=== PATIENT | male | born 1950 | race Caucasian/White ===

== ENCOUNTER 2020-04-15 08:28 | Day surgery (SDC) | payer MEDICARE, OTHER, SELFPAY ==
--- NOTE | 2020-04-12 11:18 | P.CONAN_ITS ---
Documented by User: Arleen Ingram 04/12/20 11:19 HPI - Anesthesia Eval Consult details Narrative: 70yo M for Colonscopy: screening [facility] Past Medical History Medical History GERD (gastroesophageal reflux disease) HTN (hypertension) Surgical History Surgical History Hx of bilateral cataract extraction Hx of colonoscopy Hx of detached retina repair Hx of right inguinal hernia repair Social History Social History Smoking Status: Never smoker Second Hand Smoke Exposure: No Use of substances other than those prescribed or required for medical reasons: No Advance Directives: No Advance Directives Information Provided: Yes Advance Directives on File: No Meds Allergies Allergy/AdvReac Type Severity Reaction Status Date / Time shrimp Allergy Unknown Unknown Verified 04/10/20 09:52 Home Medications Medication Instructions Recorded Confirmed Type cholecalciferol (vitamin D3) 50 mcg PO DAILY 04/10/20 04/10/20 History [Vitamin D3] omeprazole 20 mg PO DAILY PRN 04/10/20 04/10/20 History triamterene-hydrochlorothiazid 1 cap PO DAILY 04/10/20 04/10/20 History Exam Exam Date and Time: April 12, 2020 111 Assessment and Plan Assessment Anesthesia Assessment: Chart Reviewed Documented by User: Maico Scott 04/15/20 09:54 [facility] Past Medical History Medical History GERD (gastroesophageal reflux disease) HTN (hypertension) Surgical History Surgical History Hx of bilateral cataract extraction Hx of colonoscopy Hx of detached retina repair Hx of right inguinal hernia repair Social History Social History Smoking Status: Never smoker Second Hand Smoke Exposure: No Use of substances other than those prescribed or required for medical reasons: No Advance Directives: No Advance Directives Information Provided: Yes Advance Directives on File: No Meds Allergies Allergy/AdvReac Type Severity Reaction Status Date / Time shrimp Allergy Unknown Unknown Verified 04/10/20 09:52 Home Medications Medication Instructions Recorded Confirmed Type cholecalciferol (vitamin D3) 50 mcg PO DAILY 04/10/20 04/10/20 History [Vitamin D3] omeprazole 20 mg PO DAILY PRN 04/10/20 04/10/20 History triamterene-hydrochlorothiazid 1 cap PO DAILY 04/10/20 04/10/20 History Exam Airway Mallampati Class: I TM Dist: >3cm Neck ROM: Full Loose/Missing/Broken Teeth: Yes and Upper (B8) Heart: RRR Assessment and Plan Assessment Anesthesia Assessment: Anesthesia Plan Discussed Final Anesthetic Review NPO: Yes ASA Class: II Final Preanesthetic Review: Consent Obtained/Reviewed Anesthetic Plan Anesthetic Plan: MAC:
[2020-04-12 14:51] VITALS: BMI 22.4
[2020-04-15 08:48] VITALS: BP 136/81; PULSE 65; RESP 16; TEMP 36.3; O2SAT 98
[2020-04-15] MEDS: Lactated Ringers 1,000 ML 100 ML IVCONT (09:06)
[2020-04-15 10:50] VITALS: BP 108/70; PULSE 89; RESP 16; TEMP 36.6; O2SAT 97
--- NOTE | 2020-04-15 10:51 | PM.OP ---
Brief Operative Note Date of procedure: 04/15/20 Pre-op diagnosis: Screening Post-op diagnosis: other (Colon polyps) Procedure: Colonoscopy to cecum with Biopsy and snare polypectomy Surgeon: Ashok Mcguire Anesthesia: MAC Estimated blood loss (mL): 3.0 Pathology: other (A. Cecal polyps) Condition: stable Disposition: PACU
[2020-04-15 11:04] VITALS: BP 109/78; PULSE 75; RESP 18; TEMP 36.4; O2SAT 98
[2020-04-15 11:14] VITALS: BP 128/78; PULSE 93; RESP 18; TEMP 36.4; O2SAT 99
--- NOTE | 2020-04-15 11:37 | HO.POSTANES ---
Post Anesthesia Evaluation Post Anesthesia Evaluation Vital Signs: Vital Signs Temp Pulse Resp BP Pulse Ox 04/15/20 11:14 97.6 F 93 18 128/78 99 04/15/20 11:04 97.6 F 75 18 109/78 98 04/15/20 10:50 97.8 F 89 16 108/70 97 04/15/20 08:48 97.4 F 65 16 136/81 98 Anesthesia: Monitored Mental Status: Awake Pain Control: Satisfactory Nausea/Vomiting: None Hydration: Adequate Anesthesia-Related Issues: No Anes. Related Issues
--- NOTE | 2020-04-15 13:15 | OP_ITS ---
SURGEON: Ashok Mcguire MD INDICATIONS: The patient presents for evaluation of colorectal cancer screening. Full consent has been obtained from him for this, including risks of bleeding and perforation. PREOPERATIVE DIAGNOSIS: Colorectal cancer screening. POSTOPERATIVE DIAGNOSIS: PROCEDURE PERFORMED: Colonoscopy to the cecum with snare polypectomy, and biopsy and removal of polyp. ESTIMATED BLOOD LOSS: COMPLICATIONS: ANESTHESIA: ASSISTANTS: SPECIMENS: POSTOPERATIVE DIAGNOSES: Colorectal cancer screening, colon polyps, diverticulosis and internal hemorrhoids. DESCRIPTION OF PROCEDURE: The patient was placed in the left lateral decubitus position. The digital rectal exam revealed no abnormalities. The Olympus video pediatric colonoscope was entered into the rectum and advanced easily to the cecum. Once in the cecum, I did identify cecal pouch with appendiceal orifice and a normal-appearing ileocecal valve. The entire cecum was well visualized. In the cecum, was a flat approximately 12 mm grossly adenomatous polyp, which was snared and recovered by suction. The polypectomy site appeared clean, without any sign of residual polyp nor bleeding. In the same area, was an approximately 2 or 3 mm polyp, which was biopsied and completely removed with cold biopsy forceps. The remainder of the cecum appeared normal. The scope was then slowly withdrawn assessing all mucosal surfaces carefully. Preparation was excellent. I did not visualize any other polyps, colitis, nor angiodysplasia. There was a moderate amount of sigmoid diverticulosis. In the rectum, scope was retroflexed visualizing internal hemorrhoids, but no other pathology. The rectal mucosa appeared normal. The scope was straightened out and withdrawn from the patient. He tolerated the procedure well and was returned to the recovery area in stable condition. IMPRESSION: 1. Colon polyps, status post snare polypectomy, and biopsy and removal. 2. Diverticulosis. 3. Internal hemorrhoids. PLAN: The results of the pathology will be checked. Given the appearance of the larger polyp, I would recommend a repeat colonoscopy in 5 years for further screening and surveillance. He will otherwise see me on a p.r.n. basis. He was advised not to use any aspirin and NSAIDs for 1 week. MD SHERRI Norman/SANTIAGO / [id number]
== END 2020-04-15 11:38 | disposition home or self-care (01) ==
PROVIDERS: Visit Provider Internal Medicine
PROC: 0DJD8ZZ Inspection of Lower Intestinal Tract, Via Natural or Artificial Opening Endoscopic (ICD-10-PCS; CPT 45378; principal; 2020-04-15 09:40)
DX: Z12.11 Encounter for screening for malignant neoplasm of colon (principal); D12.0 Benign neoplasm of cecum; Z83.71 Family history of colonic polyps; K57.30 Diverticulosis of large intestine without perforation or abscess without bleeding; K64.8 Other hemorrhoids; K21.9 Gastro-esophageal reflux disease without esophagitis; I10 Essential (primary) hypertension; Z79.899 Other long term (current) drug therapy; Z80.52 Family history of malignant neoplasm of bladder
CPT/HCPCS: 45385; 45380; 88305

== ENCOUNTER 2025-05-07 06:28 | Day surgery (SDC) | payer MEDICARE, OTHER, SELFPAY ==
--- OUTSIDE RECORDS SUMMARY | 2025-04-10 17:23 | XMS_ITS | Clinical Summary ---
Author Organization [facility] Address [address] [place] [id number] Phone Care Team Providers Care Patient Intake Representative Name Role Phone Daphnie Gavin MD Primary Care Provider [phone] Rachelle Harris MD Unavailable [phone] Allergies Active Allergy Reactions Criticality Noted Date Comments Shrimp Rash Low 03/31/2017 Medications fluticasone propionate (FLONASE) 50 mcg/actuation nasal spray USE 1 SPRAY IN BOTH NOSTRILS DAILY IN THE MORNING FOR 14 DAYS 0 7 Active ketorolac (ACULAR) 0.5 % ophthalmic solution PUT 1 DROP INTO RIGHT EYE TWICE A DAY 1 7 Active triamterene-hyd roCHLOROthiazid e (DYAZIDE) 37.5-25 mg per capsule TAKE 1 CAPSULE BY MOUTH DAILY,X90 DAYS 1 7 Active omeprazole (PRILOSEC) 20 mg TbEC Take 20 mg by mouth daily before breakfast. Active cholecalciferol (VITAMIN D3) 2,000 unit capsule Take by mouth daily. Active cyclopentolate (CYCLOGYL) 1 % ophthalmic solution USE 1 DROP RIGHT EYE 3 TIMES A DAY 5 7 Active bromfenac 0.07 % Drop ophthalmic solution Place 1 drop into the right eye 2 (two) times a day. 5 mL 2 8 Active Additional Information Patient not taking.Reported on 03/10/2019 difluprednate (DUREZOL) 0.05 % Drop Place 1 drop into the right eye 4 (four) times a day. 5 mL 5 8 Active Additional Information Patient not taking.Reported on 03/10/2019 ofloxacin (OCUFLOX) 0.3 % ophthalmic solution Place 1 drop into the right eye 4 (four) times a day. 5 mL 8 Active Additional Information Patient not taking.Reported on 03/10/2019 prednisoLONE sodium phosphate 1 % ophthalmic solution Place 1 drop into the right eye 4 (four) times a day. 5 mL 2 8 Active Additional Information Patient not taking.Reported on 03/10/2019 ketorolac (ACULAR) 0.5 % ophthalmic solution Place 1 drop into the right eye 4 (four) times a day. 5 mL 3 8 Active Additional Information Patient not taking.Reported on 03/10/2019 prednisoLONE acetate (PRED FORTE) 1 % ophthalmic suspensionIndic ations:Right epiretinal membrane PLACE 1 DROP INTO THE RIGHT EYE 4 TIMES DAILY 5 mL 3 9 Active Additional Information Patient not taking.Reported on 03/10/2019 erythromycin (ROMYCIN) ophthalmic ointment Place 0.5 inches into the right eye 2 (two) times a day. 3.5 g 2 9 Active Additional Information Patient not taking.Reported on 03/10/2019 prednisoLONE acetate (PRED FORTE) 1 % ophthalmic suspension Place 1 drop into the right eye 2 (two) times a day. 5 mL 4 1 Active Active Problems No known active problems Social History Tobacco Use Types Packs/Day Years Used Date Smoking Tobacco: Never Smokeless Tobacco: Never Alcohol Use Standard Drinks/Week Comments No 0 (1 standard drink = 0.6 oz pur e alcohol) Education Answer Date Recorded Are you interested in more education? Not on elias e 10/16/2022 Are you concerned about learning? Not on file 10/16/2022 No 10/16/2022 No 10/16/2022 Digital Access Answer Date Recorded No 11/16/2022 No 11/16/2022 Reliable internet access at home? Not on file 11/16/2022 Device with a working camera? Not on file Sex and Gender Information Value Date Recorded Sex Assigned at Not on file Legal Sex Male 10:02 AM EDT Gender Identity Not on file Sexual Orientation Not on file Last Filed Vital Signs Vital Sign Reading Time Taken Comments Blood Pressure 129/74 03/16/2018 11:45 AM EDT Pulse 56 03/16/2018 11:45 AM EDT Temperature 36.3 C (97.3 F) 03/16/2018 10:12 AM EDT Respiratory Rate 18 03/16/2018 11:45 AM EDT Oxygen Saturation 100% 03/16/2018 11:45 AM EDT Inhaled Oxygen Concentration - - Weight - - Height - - Body Mass Index - - Plan of Treatment Health Maintenance Due Date Last Done Comments Adult Td,Tdap Booster 1951 LIPID PANEL 1951 POTASSIUM LEVEL 1951 DEPRESSION SCREENING 1963 HEPATITIS C SCREENING 1969 COLOGUARD 1996 COLONOSCOPY 1996 COLORECTAL CANCER SCREENING 1996 FIT TEST 1996 FOBT 1996 SIGMOIDOSCOPY 1996 VIRTUAL COLONOSCOPY 1996 PNEUMOCOCCAL VACCINES (50+ years) (1 of 1 - PCV) 2001 INFLUENZA VACCINE (#1) 2025 , 02/24/2019 COVID-19 VACCINE (3 - 2024-2 6 season) 2025 08/06/2020, 07/09/2020 RSV VACCINE (1 - 1-dose 75+ series) 2026 ZOSTER VACCINES Completed 04/28/2019, 01/25/2019, 12/26/2015 SMOKING STATUS SCREENING (On ce After 26 Yrs) Completed 02/07/2021 HEPATITIS A VACCINES Aged Out No long er eligible based on patient's age to complete this topic HIB VACCINES Aged Out No longer eligi ble based on patient's age to complete this topic MENINGOCOCCAL VACCINES (ACWY) Aged Out No longer eligible based on patient's age to complete this topic MENINGOCOCCAL VACCINES (B) Aged Out N o longer eligible based on patient's age to complete this topic Medical Devices Implanted Type Area Back Order Clerk Device Identifier Shelf Expiration Date Model / Serial / Lot Iol Pmma Ac [id number] 17.5d-03/31/2017 Implanted:2016 (Quantity not on file) MEDLINE 09/18/2020 Insurance MEDICARE PART A & B [employer] MEDICARE SUPPLEMENT MEDICARE PART A & B [employer] MEDICARE SUPPLEMENT Care Teams Patient Intake Representative Relationship Specialty Start Date End Date Daphnie Gavin MD [address] [facility] [address] [place] [id number] PCP - General Internal Medicine 01/25/17 Rachelle Harris MD [address] [place] [id number] Consulting Provider Ophthalmology 03/17/18 Additional Source Comments The information contained in this document represents components of the legal health record. It is not the complete legal health record.[facility]
--- OUTSIDE RECORDS SUMMARY | 2025-04-10 17:23 | XMS_ITS | Data Portability ---
Author Organization [place] [facility], [facility] Address [address] [place] [address] Assessment No assessment recorded. Plan of Treatment Reminders Order Date Submit Date Provider Last Modified By Organization Details Last Modified Time Details Appointments None recorde d. Lab None recorde d. Referral physica l therapi st referra l - End range stretch ing Rotator cuff and perisca pular strengt hening with scapula r stabili zation program Home exercis e program 2024 025 vin [facility] Physical Medicine & Rehabilitation Scheduling Dept, [address] [facility], [place], [address], 5 07:39:43 Procedures None recorde d. Surgeries None recorde d. Imaging XR, shoulde r, 2 or more view - room 101 right shoulde r 2024 025 vin [facility], [address], [facility] [address], [place], [address], 5 07:39:43 Medication Orders None recorde d. Patient TargetsNo targets recorded. Patient Instructions Encounter Date Encounter Id Patient Instructions Last Modified By Organization Details Last Modified Time 01/19/2025 [id number] rotator cuff: exercises Not available 01/19/2025 13:14:51 Reason for Referral Physical Therapist Referral for Impingement syndrome of right shoulder region End range stretchingRotator cuff and periscapular strengthening with scapular stabilization program Home exercise program Referring Physician: Joesph Juarez, Orthopedic Surgery, Encounter Date: 01/19/2025 Results Created Date Observation Date Name Description Value Unit Range Abnormal Flag Note LastModifiedBy Organization Detail LastModifiedTime 01/20/20 25 01/19/2025 XR, shoul andrae, 2 or more view http:/ [email or web address] ?Encry pted=mehran Wu YD8dLq bEUv6g %2BXZw aYqtaq 0bqfl% 2Fg9IQ a4ajBk vP9nXo QUaueC m3YtLR FvZlgJ JJ8mAn HZtai3 9c2385 AC0Klb niHUaK vKiQtr MwF INTERFACE [facility] Office [address] [facility] [address], [place], [address], 01/19/2025 12:42:48 01/20/20 25 01/19/2025 XR, shoul andrae, 2 or more view http:/ [email or web address] ?Encry pted=mehran Wu YD8dLq bEUv6g %2BXZw aYqtaq 0bqfl% 2Fg9IQ a4ajBk vP9nXo QUaueC m3YtLR FvZlgJ JJ8mAn HZtai3 6x1750 AC0Klb niHUaK vKiQtr MwF INTERFACE [facility] Office [address] [facility] [address], [place], [address], 01/19/2025 12:42:49 Result Notes Documentation Provider Name and Address Organization Details Recorded Time Xr, Shoulder, 2 Or More View : [email or web address] Encrypted=kzOuCctPL6gBhbH Uv6g%1YUTbjQnrqb6zxql%2Fg 3MVi8woZtvW2nAsDVosgLa1Zq VWAkLpeLBY1sIeOMifk68h624 0DH2LnoeuPKmLvAeQyuUuH Not Available [facility] 01/19/2025 12:42: 48 Xr, Shoulder, 2 Or More View : [email or web address] Encrypted=gdGkIxkQN8fAzjM Uv6g%7BZYepLhwve7myai%2Fg 5XTr6dwFdrO7jHfVPatuIy1Le RYGqZrzMAH1fXdOHbqh10n603 3IZ6KcolqUNdKnEkGntKlP Not Available [facility] 01/19/2025 12:42: 50 Problems Name Problem SNOMED Code Status Onset Date Resolution Date Notes Provider Name and Address Organization Details Recorded Time No complaints 524589977 Active Status : 'A'; Not Available [facility] 4 09:21:20 Pain of right shoulder region Active 2024 Joesph Juarez PA-C [address], [place], [address] , [facility] 5 12:34:03 Impingemen t syndrome of right shoulder region 7928306619515 02 Active 2024 Joesph Juarez PA-C [address], [place], [address] , [facility] 5 13:02:43 Calcific tendinitis of shoulder 05733156 Active 2024 Joesph Juarez PA-C [address], [place], [address] , [facility] 5 13:14:26 Problem Notes None recorded. Medical Equipment None Reported. Allergies Allergen ID Allergen Name Allergen Category Reaction Reaction Severity Criticality Documentation Date Start Date Code Code System Note Provider Name and Address Organization Details Recorded Time 170135 shrimp allergeni c extract food Not available Not available Not available 01/19/2025 73886 2 RxNorm Joesph Juarez PA-C [address], [place], [address], [facility] 5 12:31:41 222481 Arnica montana extract medicatio n rash Not available Not available 01/19/2025 47583 8 RxNorm Joesph Juarez PA-C [address], [place], [address], [facility] 12:32:02 Medications Name Sig Start Date Stop Date Status Note LastModified by Organization Details LastModified Time atorvastati n 20 mg tablet TAKE 1 TABLET BY MOUTH EVERY DAY active Not Available Not Available No t Available azithromyci n 250 mg tablet TAKE 2 TABLETS BY MOUTH TODAY, THEN TAKE 1 TABLET DAILY FOR 4 DAYS DIRECTED 01/16 completed Not Available Not Available Not Available sulfamethox azole 800 mg-trimetho prim 160 mg tablet TAKE 1 TABLET BY MOUTH TWICE A DAY FOR 10 DAYS active Not Available Not Available No t Available triamterene 37.5 mg-hydrochl orothiazide 25 mg capsule TAKE 1 CAPSULE BY MOUTH EVERY DAY active Not Available Not Available No t Available triamcinolo ne acetonide 0.1 % topical cream PLEASE SEE ATTACHED FOR DETAILED DIRECTION S active Not Available Not Available No t Available prednisolon e acetate 1 % eye drops,suspe nsion APPLY ONE DROP TO THE RIGHT EYE ONCE DAILY. active Not Available Not Available No t Available cephalexin 500 mg capsule TAKE 1 CAPSULE BY MOUTH 4 TIMES A DAY FOR 10 DAYS active Not Available Not Available No t Available hydrochloro thiazide 25 mg tablet TAKE 1 TABLET BY MOUTH EVERY DAY 01/19 completed Not Available Not Available Not Available metoprolol succinate ER 25 mg tablet,exte nded release 24 hr PLEASE SEE ATTACHED FOR DETAILED DIRECTION S active Not Available Not Available No t Available fluticasone propionate 50 mcg/actuati on nasal spray,suspe nsion USE 2 SPRAYS NARES, BOTH DAILY,SHA KE WELL BEFORE USING active Not Available Not Available No t Available metoprolol tartrate 25 mg tablet TAKE 0.5 TABLET BY MOUTH 2 TIMES A DAY,X10 DAYS NEEDED HEART RATE active Not Available Not Available No t Available Dyazide Dyazide 37.5-25MG Capsule once a day 2001 active Statu s: 'Curr ent'; Not Available Not Available Not Available fluocinolon e acetonide oil 0.01 % ear drops APPLY 3 DROP INTO BOTH EARS TWICE A DAY FOR 2 WEEKS THEN NEEDED FOR ITCHING active Not Available Not Available No t Available Eliquis 5 mg tablet TAKE 1 TABLET BY MOUTH TWICE A DAY active Not Available Not Available No t Available adapalene 0.1 %-benzoyl peroxide 2.5 % topical gel with pump active Not Available Not Available No t Available baclofen 5 mg tablet TAKE 2 TABLET BY MOUTH DAILY AT BEDTIME,X 7 DAYS, NEEDED FOR MUSCLE SPASM active Not Available Not Available No t Available Vitals Date Recorded Body height Body mass index (BMI) Body weight Provider Name and Address Organization Details Last Updated DateTime 01/19/2024 190.5 cm 21.5 kg/m2 34135.89 g ERIC REED [facility] 01/19/2024 08:19:27 Date Recorded Body height Body mass index (BMI) Body weight Provider Name and Address Organization Details Last Updated DateTime 01/19/2025 190.5 cm 21.7 kg/m2 61511.07 g Joesph Juarez PA-C [address], [place], [address] 01/19/2025 12:31:07 Social History Question Answer Notes LastModified by [employer] Details LastModified Time Tobacco Smoking Status Never Smoker Joesph Juarez PA-C [address], [place], [address], [facility] 01/19/2025 12:32:57 What Is Your Relationship Status? [facility] Information not available 01/19/2025 Sex: Unknown Functional Status Question Answer Note LastModified by OrganizInvenQuery Details LastModified Time Do you use any illicit or recreational drugs? No Information not available 01/19/2025 What is your level of alcohol consumption? None Information not available 01/19/2025 Mental Status None recorded. Family History Nothing Reported. Medical History Condition Response Heart Trouble Y Hypertension Y Sleep Apnea Y Cholesterol Y Past Encounters Encounter ID Performer Location Encounter Start Date Encounter Closed Date Diagnosis/Indication Diagnosis SNOMED-CT Code Diagnosis ICD10 Code Diagnosis IMO Codes Diagnosis Note [id number] [facility] [address] [place] [address] 01/19/2024 08:10:35 01/19/2024 09:10:32 Pain of right knee joint 1841234887 35494 M25.797 [id number] Joesph Juarez PA-C [facility] [address] [facility] [place] [address] 01/19/2025 11:55:27 01/29/2025 07:39:43 Pain of right shoulder region 8904395880 M25.511 75981364 Impingemen t syndrome of right shoulder region 7501031110 96087 M75.41 97724933 Calcific t endinitis of shoulder 15022002 M75.30 85137809 Health Concerns Section Related Observation LastModified by Organization Detai ls LastModified Time None Recorded Concern Status LastModified by Organization Details LastModified Time None Recorded Advance Directives Directive None Recorded Payers Insurance Date Sequence Insurance Name Policy Number Policy Briones Covered Member ID Briones Member ID Guarantor Name 01/19/2025 1 MEDICARE B-AK: [employer] Charles Agee [id number] Charles Agee 01/29/2025 2 [employer] [facility] INDEMNITY [facility]AN (INDEMNITY) [id number] Charles Agee [id number] Charles Agee Notes Date Note Type Note Provider Name and Address Organization Details Recorded Time 01/19/2024 text/html I am seeing the patient today under the supervision of Dr. Vasquez who was available but who did not see the patient.HPI: Bossman is a 73-year-old retired male who I saw back in February of last year for knee pain and bursitis. The bursa was aspirated and he has done quite well. Recently over the past month he noted some recurrent right knee pain. He has been working out with a link trainer. The pain was in the anterior aspect of the knee. He has used some Tylenol and symptoms have resolved. Has a history of Garrett-Schlatter disease and bursitisPast family, medical, social history and review of systems has been reviewed, updated and signed by me and is located in the patient s chart.Examination:Th e patient is well appearing and in no apparent distress. Alert and oriented x3. Gait is symmetric. Right knee exam does show abundant deformity over the tibial tubercle consistent with chronic long-standing Ravin-Schlatter disease with heterotopic bone spur. It is not tender to palpation and there is no redness warmth or fluid collection. Knee exam itself is full motion strength and stability noted joint effusion. No tenderness to palpation of the patella. Mild patella crepitus found. No pain reproduced with single or double leg squatting maneuvers.Impression: Right knee tendinitisPlan: Patient likely developed a bit of patella tendinitis secondary to some increased activity and overuse. Symptoms resolved with conservative care. He is currently asymptomatic today and no aggressive management indicated. Follow-up p.r.n. Mihir Thomas PA-C [address] [facility] [address], [place], [address], [facility] 01/19/2024 08:40:43 01/19/2025 text/html I am seeing this patient under the supervision of Dr. Vasquez who was available but did not see the patient. HPI: Patient is a 74-year-old male who comes in today for initial evaluation chief complaint of right shoulder pain. He has had some lingering symptoms years ago was under the care of an outside orthopedic doctor and was managed with some physical therapy lifestyle modification home exercises. Most recently and had increased pain he had and went a cardiac catheterization within the last 3 weeks and from the prolonged position of his arm by his side developed some increased pain. Frustrated by this, he now comes into our office for orthopedic evaluation. PFMSH and ROS has been reviewed, updated, and signed by me and is located in the patient s chart. PHYSICAL EXAMINATION: The patient is well appearing and in no apparent distress. Alert and oriented x 3. Gait is symmetric. Examination of the right shoulder findings include: ROM forward elevation 175 , external rotates 35 , internal rotates to back pocket, 4/5 strength including rotator cuff and periscapular musculature. Good Muscle bulk and strength without atrophy. No evidence of instability of the shoulder. Positive impingement signs. Moderate AC joint tenderness, Mild tenderness within the bicipital groove. Negative Speed's, Negative O'briens, Negative Denise tests. Cervical ROM normal without radicular symptoms. No erythema, no redness, no warmth. Peripheral, vascular, lymphatic examination, skin, neurological, coordination, reflexes, sensation are within normal limits. X-RAY REPORT: X-rays were ordered, obtained and independently reviewed today at [facility]. Four views of the right shoulder demonstrate type II acromion, calcific deposit within the supraspinatus tendon, well-preserved glenohumeral joint, AC joint arthritis. IMPRESSION: Right shoulder impingement, AC joint arthritis, calcific tendinitis discussed the nature of the findings and recommend referral to outpatient physical therapy, we talked about pros and cons of an injection which she opted to hold off on these going forward with at this time. All this reviewed patient content with the plan I gave him home exercise to work on if his symptoms escalate reevaluate patient be injected at that time. If symptoms still responsive would consider MRI scan imaging in future. PLAN: Discussed the nature of the findings and recommend referral to outpatient physical therapy, we talked about pros and cons of an injection which she opted to hold off on these going forward with at this time. All this reviewed patient content with the plan I gave him home exercise to work on if his symptoms escalate reevaluate patient be injected at that time. If symptoms still responsive would consider MRI scan imaging in future. [facility] speech recognition geospatial technician software was used to create portions of this document. An attempt at proofreading has been made to minimize errors. Please call for corrections. Joesph Juarez PA-C [address] [place], [place] [address] [address], [place], [address], [facility] 01/19/2025 13:14:54
--- OUTSIDE RECORDS SUMMARY | 2025-04-10 17:23 | XMS_ITS | Patient Health Record ---
Author Organization [facility] Address [address] [place] [address] Care Team Providers Care Vba Programmer Name Role Phone Shayne Banuelos Primary Care Provider Lena Morrison Unavailable [phone] Allergies Allergen (clinical drug ingredient) Drug/Non Drug Allergy documented on EMR Reaction Allergy Type Onset Date Status amoxicillin Amoxicillin stomach upset Drug Allergy Active Shellfish (FN) Shellfish-derived Products Unknown Drug Allergy Active Reason For Referral No Information Medications Medication SIG (Take, Route, Frequency, Duration) Notes Start Date End Date Status Vitamin D 50 MCG (1999) 1 tablet Oral ly Once a day Active Atorvastatin Calcium 20 MG 1 tablet Oral ly Once a day Active Ketorolac Tromethamine Not-Taking Baby Aspirin Not-Vincenzo ing Omeprazole 20 MG 2 capsules Orally Once a day PRN Not-Taking prednisoLONE Acetate 1 % Ophthalmic; Duration: 75 Days Not-Taking Loteprednol Etabonate 0.5 % Ophthalmic; Duration: 30 Days Active Compression Stockings 20-30m m Hg 1 pair wear daily; Duration: 30 days Active Eliquis 5 MG TAKE 1 TABLET BY MOUTH TWICE A DAY Oral; Duration: 30 Days Active Fluticasone Propionate Not-Taking hydroCHLOROthiazide 25 MG Oral; Duration : 90 Days Not-Taking Metoprolol Tartrate 25 MG TAKE 0.5 TABLE T BY MOUTH 2 TIMES A DAY,X10 DAYS NEEDED HEART RATE Oral; Duration: 20 Days Active Triamterene-HCTZ 37.5-25 MG 1 tablet in the morning Orally Once a day Not-Taking Aspirin Not-Taking Immunizations Vaccine Route Administration Date Status Comme nts Influenza Unknown 04/13/2024 Administered COVID-19 Moderna Vaccine Unknown 08/06/2020 Administered 1st vaccine 06/21 03/11 Social History Tobacco Use: Social History Observation Description Date Details (start date - stop date) Never Smoker NA - NA Tobacco use other than smoking: Question Answer Notes Are you an other tobacco user? No Tobacco Control (Standard) Question Answer Notes Tobacco use: Nonsmoker Additional Findings: Tobacco non-user Current no nsmoker AUDIT-C (Standard) Question Answer Notes Did you have a drink containing alcohol in the p ast year? No Points 0 Interpretation Negative Vital Signs Blood pressure diastolic 65 mm Hg 03/29/2025 Height 6ft 3in in 03/29/2025 Blood pressure systolic 128 mm Hg 03/29/2025 Weight 172 lbs 03/29/2025 BMI 21.5 kg/m2 03/29/2025 Encounters Encounter Location Date Provider Diagnosis [address] [address] 06/29/2024 Lena Perica Tinea unguium B35.1 ; Contusion of left foot, initial encounter S90.32XA ; Pain in right toe(s) M79.674 and Pain in left toe(s) M79.[address] [address] 09/25/2024 Lena Perica Edema, lower extremity R60.0 ; Tinea unguium B35.1 ; Pain in right toe(s) M79.674 and Pain in left toe(s) M79.[address] [address] 01/04/2025 Lena Perica Edema, lower extremity R60.0 ; Tinea unguium B35.1 ; Pain in right toe(s) M79.674 and Pain in left toe(s) M79.[address] [address] 03/29/2025 Lena Perica Tinea unguium B35.1 ; Neuritis of left foot G57.92 ; Pain in right toe(s) M79.674 ; Pain in left toe(s) M79.675 and Pain in left foot M79.[address] [address] 06/01/2024 Lena Perica [facility] [address] [address] 06/12/2024 Lena Perica [facility] [place] [address] [facility] [place] [address] 06/29/2024 Lena Perica [facility] [place] [address] [facility] [place] [address] 09/25/2024 Lena Perica [facility] [place] [address] [facility] [place] [address] 12/12/2024 Lena Perica [facility] [place] [address] [facility] [place] [address] 01/26/2025 Lena Perica [facility] [place] [address] [facility] [place] [address] 03/16/2025 Lena Perica [facility] [address] [address] 03/29/2025 Lena Perica [facility] [address] [address] 04/03/2025 Lena Perica [facility] [address] [address] 04/10/2025 Lena Perica Assessments Encounter Date Diagnosis (ICD Code) Assessment Notes Treatment Notes Treatment Clinical Notes Section Notes 06/29/2024 Contusion of left foot, initial encounter (ICD-10 - S90.32XA) 06/29/2024 Tinea unguium (ICD-10 - B35.1) 09/25/2024 Tinea unguium (ICD-10 - B35.1) 09/25/2024 Edema, lower extremity (ICD-10 - R60.0) 01/04/2025 Tinea unguium (ICD-10 - B35.1) 01/04/2025 Edema, lower extremity (ICD-10 - R60.0) 03/29/2025 Tinea unguium (ICD-10 - B35.1) 03/29/2025 Neuritis of left foot (ICD-10 - G57.92) 01/04/2025 Pain in right toe(s) (ICD-10 - M79.674) 03/29/2025 Pain in right toe(s) (ICD-10 - M79.674) 06/29/2024 Pain in right toe(s) (ICD-10 - M79.674) 09/25/2024 Pain in right toe(s) (ICD-10 - M79.674) 06/29/2024 Pain in left toe(s) (ICD-10 - M79.675) 09/25/2024 Pain in left toe(s) (ICD-10 - M79.675) 01/04/2025 Pain in left toe(s) (ICD-10 - M79.675) 03/29/2025 Pain in left toe(s) (ICD-10 - M79.675) 03/29/2025 Pain in left foot (ICD-10 - M79.672) Plan Of Treatment Pending Test Test Name Order Date X ray : Foot, left 3V 07/21/2018 [id number] NAIL, 6 OR MORE 10/08/2020 [id number] NAIL, 1-5 04/21/2018 [id number] NAIL, 1-5 04/03/2016 [id number] NAIL, 1-5 12/04/2016 [id number] Destruction, -14 12/04/2016 71477-Xrcy Destruction, -14 03/16/2017 83387-Ncys Destruction, 1-14 04/21/2018 53068-Bedc Destruction, 1-14 10/08/2020 Next Appt Details Provider Name:Sukhdev Giordano, 04/16/2025 09:00:00 AM, [address] [place], [address], Provider Name:Lena null, 06/28/2025 10:00:00 AM, [address] [place] [address], [address], Provider Name:Lena null, 09/27/2025 09:00:00 AM, [address] [place], [address], Insurance Providers Payer Name Payer Address Payer Phone Subscriber Number Group Number Insured Name Patient Relationship to Insured Coverage Start Date Coverage End Date Medicare [facility] [address] [place] [address] [id number] Charles Agee Self - patient is the insured PolyP[employer] (Pairy) [address] [place] [address] [id number] Charles Agee Self - patient is the insured Medical (General) History Medical History History ICD Code Arthritis Back,Hip,and Knee pain Cataracts High blood pressure Psoriasis/eczema Reflux Sciatica chronic sinusitis cardiology watch A fib Surgical History Surgery Date(Month/Year) Cataract surgery Retinal detachment Right eye scar tissue 03/08 Hospitalization History Reason Date(Month/Year) cardiac 01/12 er overnight 08/2024 [facility] chest pain 10/2021 ER- fell 04/11/21
--- OUTSIDE RECORDS SUMMARY | 2025-04-10 17:23 | XMS_ITS | Patient Health Record ---
Author Organization [facility] Address [address] [place] [address] Care Team Providers Care Utilities Manager Name Role Phone Shayne Banuelos M.D. Primary Care Provider Ashok Ramos Unavailable [phone] Allergies Allergen (clinical drug ingredient) Drug/Non Drug Allergy documented on EMR Reaction Allergy Type Onset Date Status Shellfish (FN) Shrimp (uncoded) Unknown Allergy Active Reason For Referral No Information Medications Medication SIG (Take, Route, Frequency, Duration) Notes Start Date End Date Status Eliquis 5 MG TAKE 1 TABLET BY ESTEFANY TH TWICE A DAY Oral; Duration: 90 Days Active Atorvastatin Calcium 20 MG Oral; Duration: 90 Days Acti ve Metoprolol Succinate ER 25 MG PLEASE SEE ATTACHED FOR DETAILED DIRECTIONS Oral; Duration: 90 Days Active prednisoLONE Acetate 1 % Ophthalmic; Dur ation: 75 Days Active Vitamin D 50 MCG (1999 UT) 1 capsule Orally Once a day; Duration: 30 day(s) Active Omeprazole 20 MG TAKE 1 CAPSULE BY MO UT TWICE A DAY ONE HOUR BEFORE MEALS Oral; Duration: 30 Not-Taking Immunizations Vaccine Route Administration Date Status Comme nts Influenza Unknown 02/21/2019 Administered Social History Tobacco Use: Social History Observation Description Date Details (start date - stop date) Never Smoker NA - NA Tobacco Use/Smoking Question Answer Notes Patient is a nonsmoker Alcohol Screen Question Answer Notes Did you have a drink containing alcohol in the p ast year? No Points 0 Interpretation Negative Section Notes: Nonsmoker; no alcohol Nonsmoker; no alcohol Problems Problem Type SNOMED Code ICD Code Onset Dates Problem Status W/U Status Risk Notes Problem Screening for malignant neoplasm of colon (759811677) Encounter for screening for malignant neoplasm of colon (Z12.11) Active confirmed Problem Long-term current use of anticoagulant (370117399) USP (current) use of anticoagulants (Z79.01) Active confirmed Problem Preprocedural examination (421116094511852) Preprocedural examination (Z01.818) Active confirmed Problem Long-term current use of drug therapy (972145935) Long-term use of high-risk medication (Z79.899) Active confirmed Problem History of adenomatous polyp of colon (810663657) History of adenomatous polyp of colon (Z86.0101) Active confirmed Vital Signs Blood pressure diastolic 77 mm Hg 01/30/2025 Height 75 in 01/30/2025 Blood pressure systolic 111 mm Hg 01/30/2025 Weight 173 lbs 01/30/2025 BMI 21.62 kg/m2 01/30/2025 Procedures Procedure Date Ordered Date Performed Result Body Sit e COLONOSCOPY 01/30/2025 N/A Encounters Encounter Location Date Provider Diagnosis [facility] [address] [facility] [address] [place] [address] 01/30/2025 Ashok Mcguire Encounter for screen ing for malignant neoplasm of colon Z12.11 ; USP (current) use of anticoagulants Z79.01 ; History of adenomatous polyp of colon Z86.0101 and Preprocedural examination Z01.818 Assessments Encounter Date Diagnosis (ICD Code) Assessment Notes Treatment Notes Treatment Clinical Notes Section Notes 01/30/2025 Encounter for screening for malignant neoplasm of colon (ICD-10 - Z12.11) Overall, Charles appears quite well. Given his history of tubular adenomas removed almost 5 years ago, I did recommend a follow-up colonoscopy for further screening purposes. We did review the rationale for this in regard to colon cancer prevention. Full consent has been obtained for this, including risks of bleeding and perforation. The procedure will be done with monitored anesthesia care. He was given the below instructions regarding adjustment of his medication for the procedure. Charles was comfortable with this plan. Thank you again for allowing me to participate in Evelia's care. I shall continue to keep you advised of his progress.. 01/30/2025 USP (current) use of anticoagulants (ICD-10 - Z79.01) Overall, Charles appears quite well. Given his history of tubular adenomas removed almost 5 years ago, I did recommend a follow-up colonoscopy for further screening purposes. We did review the rationale for this in regard to colon cancer prevention. Full consent has been obtained for this, including risks of bleeding and perforation. The procedure will be done with monitored anesthesia care. He was given the below instructions regarding adjustment of his medication for the procedure. Charles was comfortable with this plan. Thank you again for allowing me to participate in [facility]. I shall continue to keep you advised of his progress.. 01/30/2025 History of adenomatous polyp of colon (ICD-10 - Z86.0101) Overall, Charles appears quite well. Given his history of tubular adenomas removed almost 5 years ago, I did recommend a follow-up colonoscopy for further screening purposes. We did review the rationale for this in regard to colon cancer prevention. Full consent has been obtained for this, including risks of bleeding and perforation. The procedure will be done with monitored anesthesia care. He was given the below instructions regarding adjustment of his medication for the procedure. Charles was comfortable with this plan. Thank you again for allowing me to participate in [facility]. I shall continue to keep you advised of his progress.. 01/30/2025 Preprocedural examination (ICD-10 - Z01.818) Overall, Charles appears quite well. Given his history of tubular adenomas removed almost 5 years ago, I did recommend a follow-up colonoscopy for further screening purposes. We did review the rationale for this in regard to colon cancer prevention. Full consent has been obtained for this, including risks of bleeding and perforation. The procedure will be done with monitored anesthesia care. He was given the below instructions regarding adjustment of his medication for the procedure. Charles was comfortable with this plan. Thank you again for allowing me to participate in [facility]. I shall continue to keep you advised of his progress.. Plan Of Treatment Pending Test Test Name Order Date COLONOSCOPY 01/30/2025 Future Test Test Name Order Date COLONOSCOPY 01/30/2020 Next Appt Details Provider Name:Ashok Mcguire , 05/07/2025 09:20:00 AM, [address] [place] [address] , [place], [place], [phone], Insurance Providers Payer Name Payer Address Payer Phone Subscriber Number Group Number Insured Name Patient Relationship to Insured Coverage Start Date Coverage End Date MEDICARE OF [place] [address] [place] [address] [id number] CHARLES CELIS Self - patient is the insured [facility] [address] [place] [address] [id number] CHARLES CELIS Self - patient is the insured Medical (General) History Medical History History ICD Code Hypertension GERD - uses omepraozle prn Denies VA,DM,CVA,Lung disease,renal dise ase Neg. colonoscopy in 12/[facility] [address]. Christine; also reports a neg colonoscopy 10 years before that Afib 08/2024 Dr. Swan [facility]---cardiac cath neg. 12/2024 with EF 60% Colonoscopy 03/2020 with 2 tubular adeno mas removed from cecum Surgical History Surgery Date(Month/Year) Inguinal hernia repair-right Left and right cataract surgery Left and right retina detachment
--- OUTSIDE RECORDS SUMMARY | 2025-04-10 17:23 | XMS_ITS | Clinical Summary ---
Author Organization [facility] Address [address] [place] [address] Care Team Providers Care Joint Filler Name Role Phone Jin Berkowitz MD Primary Care Provider Allergies No known active allergies Medications Medication Sig Dispensed Refills Start Date End Date Status fluticasone (FLONASE) 50 MCG/ACT nasal spray USE 1 SPRAY IN BOTH NOSTRILS DAILY IN THE MORNING FOR 14 DAYS 0 12/18/2016 Active ketorolac (ACULAR) 0.5 % ophthalmic solution PUT 1 DROP INTO RIGHT EYE TWICE A DAY 1 01/21/2017 Active Cholecalciferol (VITAMIN D3) 2000 UNITS capsule Take by mouth. 0 Active Omeprazole (RA OMEPRAZOLE) 20 MG TBEC Take 20 mg by mouth. 0 Active triamterene-hydrochlo rothiazide (DYAZIDE) 37.5-25 MG per capsule TAKE 1 CAPSULE BY MOUTH DAILY,X90 DAYS 0 02/05/2017 Active Active Problems Problem Noted Date Diagnosed Date Left shoulder pain 02/04/2017 Family History Medical History Relation Name Comments Cancer Mother Hypertension Mother Relation Name Status Comments Mother Social History Tobacco Use Types Packs/Day Years Used Date Smoking Tobacco: Never Assessed Sex and Gender Information Value Date Recorded Sex Assigned at Not on file Gender Identity Not on file Sexual Orientation Not on file Last Filed Vital Signs Vital Sign Reading Time Taken Comments Blood Pressure - - Pulse - - Temperature - - Respiratory Rate - - Oxygen Saturation - - Inhaled Oxygen Concentration - - Weight 79.4 kg (175 lb) 02/04/2017 1:49 PM EDT Height 195.6 cm (6' 5 ) 02/04/2017 1:49 PM EDT Body Mass Index 20.75 02/04/2017 1:49 PM EDT Plan of Treatment Health Maintenance Due Date Last Done Comments Hepatitis C Screening 1950 COVID-19 Vaccine (#1) 1951 Depression Screening 1963 Preventative Health Evaluation 1969 DTap / Tdap / Td (1 - Tdap) 1970 Colon Cancer Screening (Colonoscopy) 1996 Shingrix-Zoster Vaccine (1 of 2) 2001 Fall Risk Assessment 2016 Pneumococcal Vaccine (1 of 1 - PCV) 2016 Influenza Vaccine (#1) 2025 RSV Adult > 60+ Yrs or Pregn ant (1 - 1-dose 75+ series) 2026 Hepatitis B Vaccines Aged Out No long er eligible based on patient's age to complete this topic RSV Ped < 20 months Aged Out No longe r eligible based on patient's age to complete this topic Care Teams Joint Filler Relationship Specialty Start Date End Date Jin Berkowitz MD [address] [place] [address] PCP - General Guest Relations Agent 01/28/17
--- OUTSIDE RECORDS SUMMARY | 2025-04-10 17:23 | XMS_ITS | Data Portability ---
Author Organization [place] - [facility], All[facility] Address [address] [address] Care Team Providers Care Wind Turbine Service Technician Name Role Phone TATE YUAN Primary Care Provider Assessment Encounter Date Assessment Date Assessment LastModified by Organization Details LastModified Time 04/19/2024 04/19/2024 74 year old male presents for his yearly hearing test. No cerumen bilaterally. TMs are intact and middle ear spaces appear well aerated. 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 His left sided hearing is stable. He has had some decline in the right side at the highest frequencies. He is not currently motivated to obtain amplification. He requests a 6 month follow up for ear cleaning. Recommend repeat audiometric testing in 1-2 years. Not available 04/19/2024 11:17:45 04/19/2024 04/19/2024 Recommendations : Follow up with referring provider. Amplification, pending medical clearance and patient interest. [email or web address] Not available 04/19/2024 10:30:20 10/11/2024 10/11/2024 74 year old male presents for ear cleaning. Bilateral cerumen impactions were debrided. Patient to follow up in 6 months. We will obtain hearing test after ear cleaning. 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 Not available 10/11/2024 10:25:08 Plan of Treatment Reminders Order Date Submit Date Provider Last Modified By Organization Details Last Modified Time Details Appointments Establish ed 15 2025 03:00P SYDNEY CORONADO Not available Not available Not available Hearing Test After 2025 03:30P M Hearing Test Not available Not available Not available Lab None recorded. Referral None recorded. Procedures None recorded. Surgeries None recorded. Imaging None recorded. Medication Orders None recorded. Patient TargetsNo targets recorded. Patient InstructionsNo instructions recorded. Reason for Referral None Reported. Results Created Date Observation Date Name Description Value Unit Range Abnormal Flag Note LastModifiedBy Organization Detail LastModifiedTime 04/19/20 24 audio gram No observ ation record ed. BARCODE Not Available 2023 13:51:44 Result Notes None recorded. Problems Name Problem SNOMED Code Status Onset Date Resolution Date Notes Provider Name and Address Organization Details Recorded Time Gastroeso phageal reflux disease 440736127 Active 2014 GERD; Note: Date Diagnosed : 07/07/2014 8:38 AM (530.81) Not Available [facility] 4 02:56:07 Dysphagia 26976614 Active 2014 Dysphagia , unspecifi ed; Note: Date Diagnosed : 07/07/2014 8:38 AM (787.20) Not Available [facility] 4 02:56:07 Epistaxis Active 2014 Epistaxis ; [facility] Treatment : establish ed problem (to examiner) : stable or improved Note: Date Diagnosed : 07/13/2014 1:30 PM (784.7) Not Available [facility] 4 02:56:06 Deviated nasal septum 031194741 Active 2014 Nasal septal deviation ; Note: Date Diagnosed : 10/01/2014 10:39 AM (470) Not Available [facility] 4 02:56:07 Acute sinusitis 61421589 Active 2014 Acute sinusitis ; Note: Date Diagnosed : 10/01/2014 10:39 AM (461.9) Not Available [facility] 4 02:56:09 Gastroeso phageal reflux disease without esophagit is 752520305 Active 2015 Gastro-es ophageal reflux disease without esophagit is; Note: Date Diagnosed : 01/29/2016 2:48 PM (K21.9) Not Available [facility] 4 02:56:07 Impacted cerumen of bilateral ears 14611411049 06628 Active 2016 Impacted cerumen, bilateral ; Note: Date Diagnosed : 01/04/2017 1:57 PM (H61.23) Not Available [facility] 4 02:56:10 Seasonal allergic rhinitis 163156788 Active 2022 Other seasonal allergic rhinitis; Note: Date Diagnosed : 02/10/2023 9:27 AM (J30.2) Not Available [facility] 4 02:56:07 Cough 05576630 Active 2022 Cough, unspecifi ed; Note: Changed from R05 to R05.9 ( 3 11:17 AM) , Date Diagnosed : 02/10/2023 9:27 AM (R05) Not Available [facility] 4 02:56:08 Sensorine ural hearing loss of bilateral ears 243339564 Active 2022 Sensorine ural hearing loss, bilateral ; Note: Date Diagnosed : 3 9:23 AM (H90.3) Not Available [facility] 4 02:56:08 Itching of skin 790831061 Active 2023 Pruritus, unspecifi ed; Note: Date Diagnosed : 08/04/2023 9:36 AM (L29.9) Not Available [facility] 4 02:56:10 Problem Notes None recorded. Procedures Surgical History Date Name Laterality Status Provider Name and Address Organization Details Recorded Time 5 Cerumen removal without microscope bilat completed Geetha Martin [place] - [facility] 10/11/2024 10:24:08 4 Comp Audio with Tymps - 14285 & 22853 completed MAJOR COX, [address], [address], [facility] - [facility] 04/19/2024 10:30:02 Cataract Surgery completed Elaina Singh [place] - [facility] 04/19/2024 10:45:39 Imaging Results None recorded. Procedure Notes None recorded. Medical Equipment None Reported. Allergies Allergen ID Allergen Name Allergen Category Reaction Reaction Severity Criticality Documentation Date Start Date Code Code System Note Provider Name and Address Organization Details Recorded Time 364647 amoxicill in medicatio n other Not available Not available 11/02/2023 723 RxNorm React ion: unkno wn, unspe cifie d;; Not Available [facility] 01:13:16 Medications Name Sig Start Date Stop Date Status Note LastModified by Organization Details LastModified Time atorvasta tin 20 mg tablet TAKE 1 TABLET BY MOUTH EVERY DAY active Not Available Not Available No t Available Ceftin 500 mg tablet 1 tablet by mouth 2014 active Medicati on ID: [id number] Du ration Value: 14 Prescri bed By Name: DANITA Lux nd Name: Ceftin S end Method: E-Prescr ibed Sub s Allowed: subs OK Medic ationGen ericName : Ceftin Not Available Not Available Not Available aspirin 81 mg tablet,de layed release active Medicati on ID: [id number] B rand Name: aspirin Send Method: E-Prescr ibed Sub s Allowed: subs OK Speci al Instruct ion: TAKE 1 TABLET BY MOUTH EVERY DAY Medi cationGe nericNam e: aspirin Not Available Not Available Not Available triamtere ne 37.5 mg-hydroc hlorothia zide 25 mg capsule TAKE 1 CAPSULE BY MOUTH EVERY DAY 10/11 completed Not Available Not Available Not Available triamcino lone acetonide 0.1 % topical cream PLEASE SEE ATTACHED FOR DETAILED DIRECTIO NS active Not Available Not Available No t Available prednisol one acetate 1 % eye drops,gavino pension APPLY ONE DROP TO THE RIGHT EYE ONCE DAILY. active Not Available Not Available No t Available nitroglyc huma 0.4 mg sublingua l tablet active Medicati on ID: [id number] B rand Name: nitrogly cerin Se nd Method: E-Prescr ibed Sub s Allowed: subs OK Medic ationGen ericName : nitrogly cerin Not Available Not Available Not Available omeprazol e 20 mg capsule,d elayed release 1 capsule by mouth 2017 active Medicati on ID: [id number] D uration Value: 30 Prescri bed By Name: Graham Mauricio MD Brand Name: omeprazo le Send Method: E-Prescr ibed Sub s Allowed: subs OK Medic ationGen ericName : omeprazo le Not Available Not Available Not Available hydrochlo rothiazid e 25 mg tablet TAKE 1 TABLET BY MOUTH EVERY DAY active Not Available Not Available No t Available metoprolo l succinate ER 25 mg tablet,ex tended release 24 hr PLEASE SEE ATTACHED FOR DETAILED DIRECTIO NS active Not Available Not Available No t Available fluticaso ne propionat e 50 mcg/actua tion nasal spray,gavino pension USE 2 SPRAYS NARES, BOTH DAILY,SH NATANAEL WELL BEFORE USING active Not Available Not Available No t Available Bactrim DS 800 mg-160 mg tablet 1 tablet by mouth 10/22 completed Medicati on ID: [id number] Pr escribed By Name: Errol Valdivia nd Name: Bactrim DS Send Method: E-Prescr ibed Sub s Allowed: subs OK Medic ationGen ericName : Bactrim DS Not Available Not Available Not Available metoprolo l tartrate 25 mg tablet TAKE 0.5 TABLET BY MOUTH 2 TIMES A DAY,X10 DAYS NEEDED HEART RATE active Not Available Not Available No t Available Vitamin D active Medicati on ID: [id number] B rand Name: Vitamin D Send Method: E-Prescr ibed Sub s Allowed: subs OK Medic ationGen ericName : Vitamin D Not Available Not Available Not Available fluocinol one acetonide oil 0.01 % ear drops APPLY 3 DROP INTO BOTH EARS TWICE A DAY FOR 2 WEEKS THEN NEEDED FOR ITCHING 04/19 completed Not Available Not Available Not Available omeprazol e 20 mg tablet,de layed release 01/28 completed Medicati on ID: [id number] Br and Name: omeprazo le Send Method: E-Prescr ibed Sub s Allowed: subs OK Speci al Instruct ion: 1 pill po bid before meals Me dication GenericN kamran: omeprazo le Not Available Not Available Not Available Eliquis 5 mg tablet TAKE 1 TABLET BY MOUTH TWICE A DAY active Not Available Not Available No t Available baclofen 5 mg tablet TAKE 2 TABLET BY MOUTH DAILY AT BEDTIME, X7 DAYS, NEEDED FOR MUSCLE SPASM 04/19 completed Not Available Not Available Not Available Vitals Date Recorded Body height Body mass index (BMI) Body weight Provider Name and Address Organization Details Last Updated DateTime 10/11/2024 190.5 cm 22 kg/m2 96154.26 g [facility] 10/11/2024 10:11:53 Social History None recorded. Functional Status None recorded. Mental Status None recorded. Family History Nothing Reported. Medical History Condition Response Hypertension Y GERD/Reflux Y High Cholesterol Y Past Encounters Encounter ID Performer Location Encounter Start Date Encounter Closed Date Diagnosis/Indication Diagnosis SNOMED-CT Code Diagnosis ICD10 Code Diagnosis IMO Codes Diagnosis Note [id number] GEETHA MARTIN PA-C [facility] [address] [address] 04/19/2024 09:55:29 04/19/2024 10:55:45 Sensorineural hearing loss of bilateral ears 575225396 H90.3 [id number] KIM GO [facility] [address] [address] 04/19/2024 10:29:17 04/19/2024 12:29:47 Sensorineural hearing loss of bilateral ears 354089424 H90.3 Audiologic al evaluation results:Ri ght ear:Normal sloping at 3kHz to severe sensorineu ral hearing loss with excellent word recognitio n.Left ear:Normal sloping at 2kHz to profound sensorineu ral hearing loss with excellent word recognitio n.Tympanom etry:Right Ear:Type ALeft Ear:Type A [id number] GEETHA MARTIN PA-C [facility] [address] [address] 10/11/2024 10:04:27 10/11/2024 10:23:53 Impacted cerumen of bilateral ears 4794117307 819252 H61.23 Health Concerns Section Related Observation LastModified by Organization Detai ls LastModified Time None Recorded Concern Status LastModified by Organization Details LastModified Time None Recorded Advance Directives Directive None Recorded Payers Insurance Date Sequence Insurance Name Policy Number Policy Briones Covered Member ID Briones Member ID Guarantor Name 02/01/2025 1 MEDICARE B-UT: [employer] Charles Agee [id number] Charles Agee 02/01/2025 2 [facility] INDEMNITY PLAN (INDEMNITY) [id number] Charles Agee [id number] Charles Agee Notes Date Note Type Note Provider Name and Address Organization Details Recorded Time 04/19/2024 text/html Audiological Evaluation HPIReported by PatientHearing LossFor hearing loss perceived, patient reportshearing loss in both ears (left ear worse)but reportsgradual onset.Use of amplification or other hearing devicesFor use of amplification or other hearing devices, patient reportsnone (does not use amplification). Annual hearing test for gradual hearing loss and to monitor asymmetry. KIM GO [address] [facility],[address], [address], [facility] 04/19/2024 10:31:10 04/19/2024 text/html ROS as noted in the [facility] 74 year old male presents to the office for routine audiometric testing and cerumen removal. He has not noticed any decline in his hearing. He does not feel that he is missing out on any conversational speech. He denies tinnitus. He does have some noise exposure with firearms and heavy machinery but uses earplugs or over the ear headphones. RUBEN NYE MD 100 [facility],[address], [address], [facility] 04/19/2024 12:43:52 10/11/2024 text/html ROS as noted in the [facility] 74 year old male presents for ear cleaning. No acute concerns. LEILANI HARRIS MD 100 [facility],[address], [address], [facility] 10/11/2024 12:13:47
--- NOTE | 2025-05-03 14:45 | HO.ANESPROP2 ---
HPI - Anesthesia Eval Consult details Narrative: 75yo M for Colonoscopy Follows [facility] Cardiology for: Paroxysmal atrial fibrillation (Eliquis) Cardiomyopathy with mildly reduced EF?with recovery noted on recent [facility] CAD with?mild disease to?LAD only Stable at 02/2025 office visit for 4 month f/u. Pt reports regular strenuous exercise. Cath done 12/2024 (see below) [facility] Past Medical History Medical History Cardiomyopathy BPH (benign prostatic hyperplasia) Atrial fibrillation GERD (gastroesophageal reflux disease) HTN (hypertension) Surgical History Surgical History Hx of cardiac catheterization Hx of right inguinal hernia repair Hx of colonoscopy Hx of detached retina repair Hx of bilateral cataract extraction Social History Social History Patient Tobacco Use Status: Never used Tobacco Second Hand Smoke Exposure: No Use of substances other than those prescribed or required for medical reasons: No Are you DNR?: No Advance Directives: No Advance Directives Information Provided: Yes Meds Allergies Allergy/AdvReac Type Severity Reaction Status Date / Time shrimp Allergy Unknown Unknown Verified 05/07/25 06:59 Arnica (Arnica [place]) Allergy Rash Verified 05/07/25 06:53 Home Medications ?Medication ?Instructions ?Recorded ?Confirmed ?Last Taken ?Type omeprazole 20 mg capsule,delayed 20 mg PO DAILY PRN Gastric Reflux 04/10/20 05/07/25 Unknown History release apixaban 5 mg tablet (Eliquis) 5 mg PO BID 05/03/25 05/07/25 05/04/25 History atorvastatin 20 mg tablet 20 mg PO DAILY 05/03/25 05/07/25 Unknown History ergocalciferol (vitamin D2) 50 mcg 50 mcg PO DAILY 05/03/25 05/07/25 Unknown History (2,000 unit) capsule fluticasone propionate 50 2 spray intranasal DAILY 05/03/25 05/07/25 Unknown History mcg/actuation nasal spray,suspension metoprolol tartrate 25 mg tablet 12.5 mg PO BID 05/03/25 05/07/25 05/07/25 05:15 History loteprednol etabonate 0.5 % eye 1 drp ophthalmic-Right DAILY 05/07/25 05/07/25 Unknown History drops,suspension Exam Pertinent Lab Results Pertinent Lab Results: Narrative Narrative: CTCT Heart/Coronary/3D/Morph ? 14:47:14 IMPRESSION: 1. No evidence of hemodynamically significant coronary artery disease. 2. Scattered predominantly calcified plaque in the LAD produces minimal stenosis in the proximal LAD with less than 25%), mild indices in the mid and distal LAD that appear to be less than 40%. WSN: [id number] Ordering Physician: Nam Engle ? Signed By: Nicolas Chandler MD [facility] Cardiac W+W/O Contrast ? 11:47:48 IMPRESSION: 1. Very technically difficult study. Irregular gating due to arrhythmia/ectopy and respiratory motion. Unable to accurately measure ventricular volumes. 2. Left ventricular size and wall thickness appear grossly normal. Left ventricular systolic function appears reduced. Unable to measure quantitative LVEF for estimate visually due to technical difficulty. 3. The right ventricle is grossly normal in size. Right ventricular systolic function appears reduced. 4. Unable to accurately measure atrial size. 5. Inadequate valve assessment. 6. No T2 evidence of myocardial edema. 7. No evidence of myocardial infarction, myocarditis, infiltrative workup or hypertrophic cardiomyopathy and family difficult delayed contrast imaging. WSN: [id number] Ordering Physician: Nam Engle ? Signed By: Riky Rosales MD ECGECG 12-Lead ? 07:57:33 Please click on pdf link to open report ? Signed By: Leonard Cordova MD ? ECG 12-Lead ? 07:57:33 Ventricular Rate: 61 BPM Atrial Rate: 61 BPM P-R Interval: 164 ms QRS Duration: 102 ms Q-T Interval: 410 ms QTC Calculation(Bazett): 412 ms P [place]: 79 degrees R [place]: 66 degrees T [place]: 68 degrees Normal sinus rhythm with sinus arrhythmia Normal ECG When compared with ECG of 09-Oct-2024 09:21, No significant change was found Confirmed ? Signed By: Leonard Cordova MD Stress Test NM Myocard Perf SPECT Multi ? 09:25:00 Summary 1. Myocardial perfusion imaging is abnormal after exercise stress test at average estimated functional capacity. There is a small, moderate intensity fixed perfusion defect in part of anteroseptal and anterior wall, from apex to base, which slightly improves with stress in the distal anteroseptal wall, with decreased thickening and motion, suggestive of infarct. No evidence of stress induced ischemia. 2. LV function is normal with an E.F. of 79 % at rest and 68 % with stress . 3. EKG portion of the stress test is reported separately. 4. Intense activity in the right arm, elbow level, especially on the stress images, likely due to tracer extravasation. Signatures _ _ ? Signed By: Brandy Ohara MD EchoEchocardiogram - Complete ? 08:19:07 Summary Due to suboptimal visual quality, IV contrast was used to enhance this study. The left ventricular ejection fraction is 30-35 %. There is severe global hypokinesis of the left ventricle. Normal right ventricular size and function. No significant valvular disease. Comparison Comparison is made to the study of November 09, 2024. There is no significant change. Signature ? Signed By: Irish HERNANDEZ, Marci Lopez Cardiac Cath ProcedureCardiac Cath Procedure ? 10:47:26 Conclusions Diagnostic Summary Normal left ventricular filling pressures. LVEDP 10 mmHg. Normal systemic pressures. No significant gradient across aortic valve by catheter pullback from LV to aorta. Left ventriculography was performed using TORREZ and KENYAN cranial projections. Overall normal left ventricle systolic function with LVEF 55 to 60%. No segmental wall motion abnormalities noted. Coronary angiogram showed right dominant system. Angiographically normal RCA, left main and LCx. Mild disease noted in proximal to mid LAD. Beyond the diagonal branch mid LAD has 20% stenosis. No significant or obstructive coronary artery disease noted. Significantly improved LV function compared to previous echocardiogram. Above findings are consistent with possibly false positive nuclear stress test and nonischemic cardiomyopathy likely due to tachybradycardia syndrome. His LV function has recovered completely. Diagnostic Recommendations Continue risk factor modifications for primary prevention. Continue statin and aspirin daily. Follow-up with primary care provider and primary software requirements engineer as scheduled. Assessment and Plan Assessment Anesthesia Assessment: Chart Reviewed
[2025-05-03 15:03] VITALS: BMI 21.6
[2025-05-07] VITALS (7 sets, daily range): BP systolic 92–141; BP diastolic 55–74; PULSE 54–70; RESP 15–18; TEMP 36.2–36.4; O2SAT 95–99; BMI 20.9
[2025-05-07] MEDS: Lactated Ringers 1,000 ML 50 ML IVCONT (07:06)
--- NOTE | 2025-05-07 07:06 | HO.ANESPROP2 ---
[facility] Past Medical History Medical History Cardiomyopathy BPH (benign prostatic hyperplasia) Atrial fibrillation GERD (gastroesophageal reflux disease) HTN (hypertension) Cognitive capacity: normal Functional capacity: independent ambulation Family History Family history of problems with anesthesia: No Surgical History Surgical History Hx of cardiac catheterization Hx of right inguinal hernia repair Hx of colonoscopy Hx of detached retina repair Hx of bilateral cataract extraction History of Problems with Anesthesia: No Social History Social History Patient Tobacco Use Status: Never used Tobacco Second Hand Smoke Exposure: No Use of substances other than those prescribed or required for medical reasons: No Are you DNR?: No Advance Directives: No Advance Directives Information Provided: Yes Meds Allergies Allergy/AdvReac Type Severity Reaction Status Date / Time shrimp Allergy Unknown Unknown Verified 05/07/25 06:59 Arnica (Arnica [place]) Allergy Rash Verified 05/07/25 06:53 Active Medications: Current Medications Lactated Ringer's (Lr) 1,000 mls @ 50 mls/hr IVCONT .Q20H MARY Last Admin: 05/07/25 07:06 Dose: 50 mls/hr Sodium Biphosphate/Sodium Phosphate (Sodium Phosphate,[place]-Dibasic 133 Ml Enema) 133 ml MN ONCE PRN PRN Reason: Poor Colonoscopy Prep Results Home Medications ?Medication ?Instructions ?Recorded ?Confirmed ?Last Taken ?Type omeprazole 20 mg capsule,delayed 20 mg PO DAILY PRN Gastric Reflux 04/10/20 05/07/25 Unknown History release apixaban 5 mg tablet (Eliquis) 5 mg PO BID 05/03/25 05/07/25 05/04/25 History atorvastatin 20 mg tablet 20 mg PO DAILY 05/03/25 05/07/25 Unknown History ergocalciferol (vitamin D2) 50 mcg 50 mcg PO DAILY 05/03/25 05/07/25 Unknown History (2,000 unit) capsule fluticasone propionate 50 2 spray intranasal DAILY 05/03/25 05/07/25 Unknown History mcg/actuation nasal spray,suspension metoprolol tartrate 25 mg tablet 12.5 mg PO BID 05/03/25 05/07/25 05/07/25 05:15 History loteprednol etabonate 0.5 % eye 1 drp ophthalmic-Right DAILY 05/07/25 05/07/25 Unknown History drops,suspension Exam Exam Date and Time: / Height,Weight and Vital Signs: Height 6 ft 3 in Weight 75.7 kg Last Vital Signs Temp 97.6 F 05/07/25 06:48 Pulse 69 05/07/25 06:48 Resp 15 05/07/25 06:48 BP 141/74 H 05/07/25 06:48 Pulse Ox 98 05/07/25 06:48 O2 Del Method Room Air 05/07/25 06:48 Airway TM Dist: >3cm Heart: a fib Lungs: normal Other: normal Assessment and Plan Assessment Anesthesia Assessment: Anesthesia Plan Discussed Final Anesthetic Review Family History of Problems with Anesthesia: No History of Problems with Anesthesia: No NPO: Yes ASA Class: III Final Preanesthetic Review: No Changes in Pt Med Stat, Meds/Allgs Chart Reviewed, Consent Obtained/Reviewed and Anes Risks/Benef Reviewed Patient Risk: Low Procedure Risk: Low Anesthetic Plan Anesthetic Plan: MAC: Disposition: Standard PACU
--- NOTE | 2025-05-07 08:46 | PM.OP ---
Brief Operative Note Date of Service: 05/07/25 Pre-op diagnosis: Screening Post-op diagnosis: other (Colon polyp) Procedure: Colonoscopy to the cecum with cold snare polypectomy and placement of 2 Resolution clips Surgeon: Ashok Mcguire MD Anesthesia: MAC Was an Alumni Relations Manager used for this Procedure?: No Estimated blood loss (mL): 2.0 Pathology: other (A. Ascending colon) Condition: stable Disposition: PACU
--- NOTE | 2025-05-07 10:39 | OP_ITS ---
DATE OF SERVICE: 05/07/2025 SURGEON: Ashok Mcguire MD INDICATIONS: The patient presents for evaluation of personal history of tubular adenoma of the colon and need for colorectal cancer screening. Full consent was obtained from him for this, including risks of bleeding and perforation. PREOPERATIVE DIAGNOSIS: Colorectal cancer screening and personal history of tubular adenoma of the colon. POSTOPERATIVE DIAGNOSIS: Colorectal cancer screening and personal history of tubular adenoma of the colon, colon polyp, diverticulosis, and internal hemorrhoids. PROCEDURE PERFORMED: Colonoscopy to cecum with cold snare polypectomy with placement of 2 Resolution clips. ESTIMATED BLOOD LOSS: COMPLICATIONS: ANESTHESIA: Monitored anesthesia care. ASSISTANTS: SPECIMENS: DESCRIPTION OF PROCEDURE: The patient was placed in the left lateral decubitus position. The digital rectal exam revealed no abnormalities. The Olympus video pediatric colonoscope was entered into the rectum and advanced easily to the cecum. Once in the cecum, I did identify normal-appearing cecal pouch with appendiceal orifice and a normal-appearing ileocecal valve. The entire cecum and ileocecal valve appeared normal. The scope was then slowly withdrawn, assessing all mucosal surfaces carefully. Preparation was excellent. In the proximal ascending colon, there was approximately 6 to 8 mm polyp, which was removed by cold snare polypectomy, recovered by suction. The polypectomy site appeared clean without any sign of residual polyp nor bleeding. Two Resolution clips were applied to the polypectomy site with good deployment and good hemostasis. I did not visualize any other polyps, colitis, nor angiodysplasia. There was a mild amount of sigmoid diverticulosis. In the rectum, the scope was retroflexed, visualizing internal hemorrhoids, but no other pathology. The rectal mucosa appeared normal. Scope was straightened and withdrawn from the patient. He tolerated the procedure well and was returned to recovery area in stable condition. IMPRESSION: 1. Colon polyp. 2. Diverticulosis. 3. Internal hemorrhoids. PLAN: The results of the pathology will be checked. Given this relatively minimal finding and his age, I do not think he would need any further screening colonoscopies going forward. He was advised to resume his Eliquis in 48 hours. He was advised to avoid all aspirin and NSAIDs for at least week, but to avoid them in general while on Eliquis. MD SHERRI Norman/SANTIAGO / [id number]
== END 2025-05-07 10:43 | disposition home or self-care (01) ==
PROVIDERS: PCP Family Medicine; Visit Provider Internal Medicine
PROC: 0DJD8ZZ Inspection of Lower Intestinal Tract, Via Natural or Artificial Opening Endoscopic (ICD-10-PCS; CPT 45378; principal; 2025-05-07 07:30)
DX: Z12.11 Encounter for screening for malignant neoplasm of colon (principal); Z86.0101 Personal history of adenomatous and serrated colon polyps; D12.2 Benign neoplasm of ascending colon; K57.30 Diverticulosis of large intestine without perforation or abscess without bleeding; K64.8 Other hemorrhoids; K21.9 Gastro-esophageal reflux disease without esophagitis; I10 Essential (primary) hypertension; I48.91 Unspecified atrial fibrillation; Z79.01 Long term (current) use of anticoagulants; Z79.899 Other long term (current) drug therapy; Z98.890 Other specified postprocedural states
CPT/HCPCS: 45385; 88305; J2003; J2704; J3010